=== PATIENT | male | born 1965 | race Caucasian/White ===

== ENCOUNTER → 2018-02-04 | Outpatient (CLI) | payer OTHER ==
--- NOTE | 2018-02-04 14:26 | XR ---
EXAMINATION TYPE: XR forearm RT DATE OF EXAM: 02/04/2018 COMPARISON: NONE HISTORY: Pain Two views of the forearm demonstrate that the osseous structures appear to be intact and the joint sp aces appear to be preserved. There is no acute fracture or dislocation. Olecranon spur noted. IMPRESSION: 1. No acute fracture or dislocation. 2. Olecranon spur
--- NOTE | 2018-02-04 14:27 | XR ---
EXAMINATION TYPE: XR wrist complete RT DATE OF EXAM: 02/04/2018 COMPARISON: NONE HISTORY: Pain TECHNIQUE: Four views submitted. FINDINGS: The osseous structures are intact. The joint spaces are preserved and there is no acute fracture or dislocation. IMPRESSION: 1. No definite acute fracture or dislocation if symptoms persist, follow-up study in 7 to 10 days wo uld be suggested
== END | disposition home or self-care (01) ==
LOC: RADXRMAIN 13:33
PROVIDERS: ATTEND Emergency Medicine
DX: M77.9 Enthesopathy, unspecified (principal)